=== PATIENT | female | born 1980 | race Caucasian/White ===

== ENCOUNTER 2022-05-08 08:03 | Outpatient (CLI) | payer OTHER, SELFPAY ==
[2022-05-08 12:36] LABS: Chloride* 102 mmol/L (96-114); Potassium* 3.8 mmol/L (3.6-5.1); Sodium* 139 mmol/L (135-149)
[2022-05-08 12:39] LABS: Blood Urea Nitrogen* 18 mg/dL (5-24); Carbon Dioxide* 28 mmol/L (20-32); Creatinine* 0.8 mg/dL (0.5-1.5); Estimated Glomerular Filt Rate 95 ml/min
[2022-05-08 12:40] LABS: Calcium* 9.4 mg/dL (8.4-10.6); Glucose* 106 mg/dL (60-115)
== END 2022-05-08 08:04 | disposition home or self-care (01) ==
PROVIDERS: PCP Family Medicine; Visit Provider Family Medicine
DX: I10 Essential (primary) hypertension (principal); Z13.29 Encounter for screening for other suspected endocrine disorder
CPT/HCPCS: 80048; 84443

== ENCOUNTER 2024-02-28 08:51 | Outpatient (CLI) | payer BC, SELFPAY | END 2024-02-28 08:52 | disposition home or self-care (01) | PROVIDERS: PCP Family Medicine; Visit Provider Family Medicine | DX: I10 Essential (primary) hypertension (principal); E78.5 Hyperlipidemia, unspecified | CPT/HCPCS: 80048; 80061 ==